=== PATIENT | female | born 1945 ===

== ENCOUNTER → 2023-11-21 | Outpatient (CLI) | payer SELFPAY | END | disposition home or self-care (01) | LOC: LAB 13:51 → LAB SHORT 13:51 | DX: R30.0 Dysuria (principal) | CPT/HCPCS: 87077; 87086; 87186 ==

== ENCOUNTER → 2024-08-04 | Outpatient (CLI) | payer MEDICARE, OTHER | LOC: LAB 14:54 → LAB SHORT 14:54 | DX: R39.9 Unspecified symptoms and signs involving the genitourinary system (principal) | CPT/HCPCS: 87086 ==

== ENCOUNTER 2024-10-20 11:36 | Emergency (ER) | payer MEDICARE, OTHER ==
[~2024-10-20] VITALS: Ht 152.4 cm; Wt 88.9 kg
[2024-10-20] MEDS ORDERED: Cyclobenzaprine HCl 10 MG Tab PO ONE (13:55)
[2024-10-20] MEDS ORDERED: HYDROcodone 7.5-APAP 325 TAB PO ONE (13:55)
[2024-10-20] MEDS ORDERED: CYCL10 PO (13:56)
[2024-10-20] MEDS ORDERED: HYDR1TAB94 PO (13:56)
== END 2024-10-20 14:20 | disposition home or self-care (01) ==
LOC: ER 11:36
DX: M54.50 Low back pain, unspecified (principal); G89.29 Other chronic pain; M51.369 Other intervertebral disc degeneration, lumbar region without mention of lumbar back pain or lower extremity pain; M48.061 Spinal stenosis, lumbar region without neurogenic claudication; M16.0 Bilateral primary osteoarthritis of hip; Z88.0 Allergy status to penicillin; Z88.6 Allergy status to analgesic agent; Z88.2 Allergy status to sulfonamides
CPT/HCPCS: 72131; 72192; 99283-25; A9270

== ENCOUNTER → 2025-04-02 | Outpatient (CLI) | payer MEDICARE, OTHER ==
[~2025-04-02] MED LIST: CYCL10 PO; HYDR1TAB94 PO
[2025-04-02 15:11] LABS: Creatinine, Urine Random 55.6 mg/dL (27.00-270.00)
[2025-04-02 15:13] LABS: Microalbumin, Random Urine 15.4 mg/L (0.000-20.000)
== END ==
LOC: LAB 11:40 → LAB SHORT 11:40
PROVIDERS: Nurse Practitioner Family
DX: E11.42 Type 2 diabetes mellitus with diabetic polyneuropathy (principal); I10 Essential (primary) hypertension; E78.49 Other hyperlipidemia
CPT/HCPCS: 82043; 82570

== ENCOUNTER 2025-09-22 17:09 | Emergency (ER) | payer MEDICARE, OTHER ==
[~2025-09-22] VITALS: Ht 152.4 cm; Wt 97.5 kg
[2025-09-22 17:49] LABS: BASOPHILS ABSOLUTE AUTO 0.02 K/mm3 (0.00-0.23); BASOPHILS PERCENT AUTO 0 % (0-2); EOSINOPHILS ABSOLUTE AUTO 0.05 K/mm3 (0.00-0.68); EOSINOPHILS PERCENT AUTO 1 % (0-6); Hematocrit 41.2 % (33.0-51.0); Hemoglobin 14.5 g/dL (11.5-16.0); IMMATURE GRAN ABSOLUTE AUTO 0.04 K/mm3 (0.00-0.10); IMMATURE GRAN PERCENT AUTO 0 % (0-1); LYMPHOCYTES ABSOLUTE AUTO 1.59 K/mm3 (0.84-5.20); LYMPHOCYTES PERCENT AUTO 17 % (21-46); MONOCYTES ABSOLUTE AUTO 0.79 K/mm3 (0.16-1.47); MONOCYTES PERCENT AUTO 9 % (4-13); Mean Corpuscular HGB Conc 35.2 g/dL (31.5-36.5); Mean Corpuscular Volume 87 fL (80-100); NEUTROPHILS ABSOLUTE AUTO 6.85 K/mm3 (1.96-9.15); NEUTROPHILS PERCENT AUTO 73 % (41-73); NRBC ABSOLUTE 0.00 K/mm3 (0.00-0.02); NRBC Auto 0.0 /100 WBC (0.0-0.2); Platelet Count 349 K/mm3 (150-400); RDW Coefficient Variation 13.5 % (11.7-14.2); RDW Standard Deviation 42.4 fL (35.1-46.3)
[2025-09-22 18:51] LABS: Magnesium, Blood 1.9 mg/dL (1.6-2.4); Thyroid Stimulating Hormone 3.88 uIU/mL (0.360-4.800)
[2025-09-22 18:52] LABS: Alanine Aminotransfer (ALT/SGP 28.0 U/L (12-78); Albumin, Blood 4.1 g/dL (3.4-5.0); Albumin/Globulin Ratio 1.2 (0.8-1.8); Anion Gap 12.0 mmol/L (3-11); Aspartate Aminotrans (AST/SGOT 12.0 U/L (12-37); Bilirubin, Total 0.5 mg/dL (0.1-1.0); Blood Urea Nitrogen 45.0 mg/dL (8-24); CO2, Blood 26.0 mmol/L (21-32); Calcium, Blood 9.7 mg/dL (8.5-10.1); Chloride, Blood 95.0 mmol/L (98-108); Creatinine, Blood 1.06 mg/dL (0.40-1.00); Globulin, Blood 3.4 g/dL (2.2-4.0); Glucose, Blood 211.0 mg/dL (70-99); Phosphorus, Blood 4.3 mg/dL (2.5-4.9); Potassium, Blood 3.4 mmol/L (3.5-5.5); Sodium, Blood 130.0 mmol/L (136-145); Total Protein, Blood 7.5 g/dL (6.4-8.2)
[2025-09-22 19:00] LABS: Source, Urine Clean Catch
[2025-09-22] MEDS ORDERED: METF500 PO (19:00)
[2025-09-22] MEDS ORDERED: ATEN50 PO (19:00)
[2025-09-22] MEDS ORDERED: ALLOPURINOL100 M1 PO (19:00)
[2025-09-22] MEDS ORDERED: DORZOLAMIDE-TIM10 ML BOTHEYES (19:00)
[2025-09-22] MEDS ORDERED: EUTHYROX175 MC1 PO (19:00)
[2025-09-22] MEDS ORDERED: EZETIMIBE10 M6 PO (19:00)
[2025-09-22] MEDS ORDERED: TOUJEO MAX300 UNIT/2 SQ (19:01)
[2025-09-22] MEDS ORDERED: PRAVASTATIN SOD20 MG PO (19:01)
[2025-09-22] MEDS ORDERED: FUROSEMIDE40 MG PO (19:01)
[2025-09-22] MEDS ORDERED: DULOXETINE HCL60 M1 PO (19:01)
[2025-09-22] MEDS ORDERED: BUPROPION HCL200 M1 PO (19:01)
[2025-09-22] MEDS ORDERED: ERYT.5TO BOTHEYES (19:01)
[2025-09-22] MEDS ORDERED: LOSARTAN POTASS25 M2 PO (19:01)
[2025-09-22] MEDS ORDERED: SPIRONOLACTONE25 MG PO (19:01)
[2025-09-22 19:03] LABS: Bilirubin, Urine Neg (Neg); Color, Urine Yellow (P-Yellow); Glucose Qualitative, Urine Neg (Neg); Ketones, Urine Neg (Neg); Leukocyte Esterase, Urine 2+ (Neg); Protein, Urine 1+ (Neg); Specific Gravity, Urine 1.020 (1.003-1.022); Urobilinogen, Urine NORM (Normal)
[2025-09-22 19:12] LABS: Red Blood Cells, Urine 0-2 /hpf (0-2)
[2025-09-22] MEDS ORDERED: NS 1,000 ML IV SCH ×2 (19:30→19:35)
[2025-09-22] MEDS ORDERED: Potassium Chloride 10 Meq Tablet SA PO ONE (19:35)
[2025-09-22] MEDS ORDERED: Nitrofurantoin/Nitrofuran Mac 100 MG Cap PO ONE (19:35)
[2025-09-22] MEDS ORDERED: NITR100CA PO (20:48)
== END 2025-09-22 20:56 | disposition home or self-care (01) ==
LOC: ER 17:09
PROVIDERS: Student in an Organized Health Care Education/Training Program
DX: N39.0 Urinary tract infection, site not specified (principal); E87.6 Hypokalemia; E11.9 Type 2 diabetes mellitus without complications; Z88.0 Allergy status to penicillin; Z88.2 Allergy status to sulfonamides; Z88.1 Allergy status to other antibiotic agents; Z88.6 Allergy status to analgesic agent
CPT/HCPCS: 71046; 80053; 81001; 83735; 83880; 84100; 84439; 84443; 84484; 85025; 87086; 93005; 93010; 96360; 99284-25; A9270; J7030